=== PATIENT | male | born 1995 | race African-American/Black ===

== ENCOUNTER 2019-06-18 17:49 | Emergency (ER) | payer MEDICAID ==
[~2019-06-18] VITALS: Ht 177.8 cm; Wt 133.3 kg
[2019-06-18 18:12] VITALS: BP 165/105
== END 2019-06-19 02:26 | disposition left against medical advice (07) ==
LOC: ER 17:49
DX: R07.89 Other chest pain (principal); Z53.21 Procedure and treatment not carried out due to patient leaving prior to being seen by health care provider
CPT/HCPCS: 93005